=== PATIENT | female | born 1955 | race Caucasian/White ===

== ENCOUNTER 2019-09-27 07:12 | Emergency (ER) | payer OTHER, SELFPAY ==
--- NOTE | ~2019-09-27 | CT_ITS ---
EXAMINATION: CT abdomen pelvis w con DATE: 09/27/2019 08:59 INDICATION: Gastric abdominal pain, nausea and vomiting TECHNIQUE: Computed tomography (CT) of the abdomen and pelvis was performed with 100 mL Omnipaque-350 intravenous contrast. Automated exposure control and iterative reconstruction technique were employe d. The dose-length product was 1320.15 mGy-cm. COMPARISON: None FINDINGS: Mild dependent atelectasis in the bilateral lower lobes. There are some smooth septal line thickening at both lung bases consistent with mild pulmonary edema. Heart size is normal. Atherosclerotic coron reymundo artery calcification. There is edematous wall thickening of the gallbladder with slight hyperemia to the adjacent liver at along the gallbladder fossa suggesting acute cholecystitis. Subtle approxim ately 3 x 2 cm gallstone at the neck of the gallbladder. Likely secondary mild periportal edema in th e liver. Common bile duct is normal in caliber. Numerous splenic calcifications consistent with old g ranulomatous disease. Pancreas, bilateral adrenal glands and kidneys are normal. There is moderate co lonic diverticulosis with a sigmoid predominance. There is no adjacent inflammatory change to sugges t diverticulitis. Small bowel and appendix are normal. Bladder, uterus and bilateral adnexa are unrem arkable. No free intraperitoneal gas or fluid. No pathologically enlarged abdominal or pelvic lymphad enopathy. There is scattered calcified atherosclerosis of the aorta and many of the other arteries. L 5 spondylolysis with bilateral pars intra-articular is defects and 1 mm anterolisthesis on S1. 2 mm a nterolisthesis L4 on L5 with mild associated disc height loss and severe bilateral facet osteoarthrit is. IMPRESSION: 1. Acute cholecystitis with likely impacted 3 x 2 cm gallstone at the neck of the gallbladder. Reviewed, dictated and finalized at location A. IMPRESSION: 1. Acute cholecystitis with likely impacted 3 x 2 cm gallstone at the neck of t he gallbladder.
--- NOTE | 2019-09-27 07:17 | ED.ABDPAIN ---
HPI - Abdominal Pain General Chief Complaint: Abdominal Pain Stated Complaint: abd pain Time Seen by Provider: 09/27/19 07:18 Source: patient Mode of arrival: ambulatory Limitations: no limitations History of Present Illness HPI narrative: 63-year-old woman comes in today complaining of upper abdominal pain that started approximately 330 this morning. Patient states that she feels nauseated but has not no vomiting. She denies fever, diarrhea, black or bloody stools, cough or cold symptoms, recent sick exposures. She states she feels mildly short of breath. MD elicited complaint: abdominal pain Pertinent past history: none Onset (ago): hour(s) (4) Pain Consistency: constant Location: epigastric Severity: severe Quality: cramping Radiation: none Migration to: no migration Exacerbating factors: movement Relieving factors: nothing Associated symptoms: nausea Related Data Home Medications Medication Instructions Recorded Confirmed No Home Medications 09/27/19 09/28/19 Allergies Allergy/AdvReac Type Severity Reaction Status Date / Time No Known Allergies Allergy Verified 09/27/19 07:51 Review of Systems Constitutional: Constitutional: Denies chills and Denies fever(s) ENT: Denies dysphagia, Denies nasal congestion and Denies sore throat Cardiovascular: Cardiovascular: Denies chest pain and Denies radiating jaw, neck or arm pain Respiratory: Respiratory: Denies cough, Reports dyspnea and Denies wheezing Gastrointestinal: Gastrointestinal: Reports as per HPI Genitourinary: Genitourinary: Denies hematuria, Denies nocturia and Denies dysuria Musculoskeletal: Musculoskeletal: Denies arthralgias and Denies joint swelling Integumentary/Breasts: Skin/Breast: Denies pruritus, Denies erythema and Denies rash Neurologic: Denies vertigo, Denies dizziness and Denies syncope Psychiatric: Psychiatric: Denies anxiety and Denies depression Hematologic/Lymphatic: Hematologic/Lymphatic: Denies easy bleeding and Denies easy bruising Allergic/Immunologic: Allergic/Immunologic: Denies lip swelling and Denies wheezing PMFSH Past Medical History Medical History (Updated 09/28/19 @ 09:00 by Ernesto Chiang MD) Obesity Patient denies significant medical history Social History Social History Social History: The patient lives at home with her , Beto. She has a 40-year history of smoking 1/2 pack per day. Uses alcohol on occasion about once every 1-2 weeks. No illicit drug use. PCP: Dr. Reyes Smoking packs per day: 0.5 Smoking cigarettes per day: 10.0 Years smoked: 40 Smoking pack-years: 20.00 Smoking status: Current every day smoker Tobacco type: cigarettes Alcohol intake: current Drinks per week: 5 Alcohol use details: Drinks alcohol 1-2 times per week. Substance use: never Living arrangements: with family Occupation/Education: occupation Additional occupation/education comments: [employer] Gender identity (if verbalized by the patient): Female Sexual Orientation (if Verbalized by the Patient): Straight or Heterosexual Spiritual care concerns: No Exam Const: General: alert Nutritional Appearance: obese Orientation/consciousness: patient oriented x3 Limitations: no limitations Other: Moderate acute distress HENMT: Mouth: Yes moist mucous membranes Throat: posterior oropharynx normal Eyes: Conjunctivae: conjunctivae normal Pupils: Equal, round and reactive pupils present EOM: EOMs intact bilaterally Neck: Neck: normal visual inspection and no lymphadenopathy Resp: Effort & Inspection: normal respiratory effort and not labored Auscultation: clear to auscultation bilaterally, no rales, no rhonchi and no wheezes Cardio: Rate: regular rate Rhythm: regular rhythm Heart sounds: no murmurs GI: Inspection: non-distended GI Palp: Yes Soft to palpation, Yes Tenderness to palpation present (GI) (RUQ, RLQ. ),
[2019-09-27 07:25] VITALS: BP 175/101; PULSE 62; RESP 18; TEMP 36.4; O2SAT 96
--- NOTE | 2019-09-27 07:29 | ECG_ITS ---
Measurements Intervals [place] Rate: 54 P: 69 VT: 155 QRS: 66 QRSD: 88 T: 40 QT: 447 QTc: 424 Interpretive Statements SINUS BRADYCARDIA BORDERLINE ST ABNORMALITY- INFERIOR LEADS BASELINE ARTIFACT- II, III, AVF BORDERLINE ECG Electronically Signed On 09-27-2019 8:24:06 CDT by Andrew Henao D.O.
[2019-09-27 07:38] LABS: Add Urine Microscopic? YES; Appearance Urine Sl Cloudy (Clear); Bilirubin Urine Negative (Negative); Blood Urine Negative (Negative); Color Urine Yellow (Yellow); Glucose Urine UA Negative (Negative); Ketones Urine Trace (Negative); Leukocyte Esterase Ur Trace LEU/UL (Negative); Nitrate Urine Negative (Negative); Protein Urine Trace (Negative); Specific Grav Ur >= 1.030 (1.010-1.020)
[2019-09-27] MEDS: SODIUM CHLORIDE 0.9% IV 1,000 ML 999 ML IV CONT (07:41)
[2019-09-27] MEDS: PANTOPRAZOLE SODIUM IV 40 MG VIAL IV PUSH (07:41)
[2019-09-27] MEDS: ONDANSETRON INJ 4 MG/2 ML VIAL IV PUSH ×2 (07:41→08:14)
[2019-09-27 07:42] LABS: RBC Urine 0-2 /hpf (0-2); WBC Urine 0-3 /hpf (0-3)
[2019-09-27 07:43] LABS: Bacteria Urine 2+ /hpf; Squamous Epithelial Cell Urine Moderate /hpf (Few)
[2019-09-27] MEDS: HYDROmorphone HCL 2 MG/ML VIAL 0.5 MG IV PUSH (07:43)
[2019-09-27 07:46] LABS: Basophils Absolute Auto 0.06 K/mm3 (0.00-0.10); Basophils Percent Auto 0.4 % (0.0-1.0); Eosinophils Absolute Auto 0.24 K/mm3 (0.02-0.50); Eosinophils Percent Auto 1.7 % (1.0-6.0); Hematocrit 44.2 % (35.0-49.0); Hemoglobin 14.2 g/dL (12.0-15.0); Immature Granulocyte Absolute 0.04 K/mm3 (0.00-0.00); Immature Granulocyte Percent A 0.3 % (0.0-0.0); Lymphocytes Absolute Auto 1.67 K/mm3 (1.10-4.50); Lymphocytes Percent Auto 11.7 % (18.0-42.0); Mean Corpuscular HGB Conc 32.1 g/dL (32.0-36.0); Mean Corpuscular Hemoglobin 31.3 pg (27.0-31.0); Mean Corpuscular Volume 97.6 fL (78.0-102.0); Mean Platelet Volume 9.2 fl (9.2-11.8); Monocytes Absolute Auto 0.72 K/mm3 (0.10-0.90); Neutrophils Absolute Auto 11.6 K/mm3 (1.7-7.2); Neutrophils Percent Auto 80.9 % (50.0-70.0); Platelet Count Result 247 K/mm3 (150-420); Red Blood Count 4.53 M/mm3 (4.20-5.40); Red Cell Distribution Width 12.8 % (11.6-14.4); White Blood Count 14.3 K/mm3 (4.8-10.8)
[2019-09-27 07:57] VITALS: BP 128/72; PULSE 55; RESP 20; O2SAT 88
[2019-09-27 08:01] LABS: INR 0.9; Partial Thromboplastin Time 29.2 SEC (22.3-31.6); Prothrombin Time 9.8 Seconds (9.64-11.0)
[2019-09-27 08:05] LABS: Alanine Aminotransferase 28 U/L (14-59); Albumin Level 3.6 g/dL (3.4-5.0); Alkaline Phosphatase 87 U/L (46-116); Anion Gap 10.9 mmol/L (7-16); Aspartate Amino Transferase 26 U/L (15-37); Bilirubin,Total 0.2 mg/dL (0.00-1.00); Blood Urea Nitrogen 13 mg/dL (7-18); Calcium 8.4 mg/dL (8.5-10.1); Carbon Dioxide 29 mmol/L (21-32); Chloride 106 mmol/L (98-108); Estimated CRCL calculation 89 ml/min; Estimated Glomerular Filt Rate > 60; Glucose 123 mg/dL (70-99); Lactic Acid Reflex 1.4 mmol/L (0.4-2.0); Lipase 90 U/L (73-393); Osmolality Calculated 295 mOsm/kg (285-295); Potassium 3.9 mmol/L (3.5-5.1); Sodium 142 mmol/L (136-145); Total Protein 7.7 g/dL (6.4-8.2); Troponin I < 0.02 ng/mL (0.00-0.056)
--- NOTE | 2019-09-27 08:52 | PC.NURSE ---
pt to xray via wheelchair with xray staff.
--- NOTE | 2019-09-27 09:11 | ED.ABDPAIN ---
HPI - Abdominal Pain General Chief Complaint: Abdominal Pain Stated Complaint: abd pain Time Seen by Provider: 09/27/19 07:18 Source: patient Mode of arrival: ambulatory Limitations: no limitations History of Present Illness HPI narrative: 63YO female w/ sudden onset of severe cramping epigastric/RUQ abd pain approx 4 hours ago associated w/ Nausea presents to ED for eval. MD elicited complaint: abdominal pain Pertinent past history: none Onset (ago): hour(s) (4) Pain Consistency: constant Location: epigastric Severity: severe Quality: cramping Radiation: none Migration to: no migration Exacerbating factors: movement Relieving factors: nothing Associated symptoms: nausea Related Data Home Medications Medication Instructions Recorded Confirmed No Home Medications 09/27/19 09/27/19 Allergies Allergy/AdvReac Type Severity Reaction Status Date / Time No Known Allergies Allergy Verified 09/27/19 07:51 Review of Systems Cardiovascular: Cardiovascular: Reports as per HPI and Reports no additional cardiovascular complaints Respiratory: Respiratory: Reports as per HPI and Reports no additional respiratory complaints Gastrointestinal: Gastrointestinal: Reports abdominal pain, Denies bloating, Denies constipation, Denies heartburn, Denies diarrhea, Reports nausea and Denies vomiting Genitourinary: Genitourinary: Reports no additional female genitourinary complaints Musculoskeletal: Musculoskeletal: Reports no additional musculoskeletal complaints Integumentary/Breasts: Skin/Breast: Reports system reviewed and no additional complaints, except as docu Neurologic: Reports system reviewed and no additional complaints, except as documented Psychiatric: Psychiatric: Reports no additional psychiatric complaints [facility] Social History Social History Smoking status: Current every day smoker Alcohol intake: never Substance use: never Living arrangements: with family Exam Const: General: no acute distress and alert; No confusion Orientation/consciousness: patient oriented x3 Limitations: No altered mental status HENMT: Head: normal to inspection Eyes: Pupils: Equal, round and reactive pupils present Chest: Chest palpation & inspection: normal inspection of the chest Resp: Effort & Inspection: normal respiratory effort Cardio: Rate: regular rate Rhythm: regular rhythm GI: Inspection: distended GI Palp: Yes Tenderness to palpation present (GI) (Generalized abd TTP worse in Epigastric and RUQ) and Yes Rebound tenderness present Percussion: Yes normal to percussion : General: Yes no CVA tenderness Skin: General skin exam: normal color Neuro: General: patient oriented x3, moves all extremities, no focal motor deficits and CN's II-XI intact bilaterally Extrem: General: normal to inspection Course Course Emergency Course: Patient w/ Acute Cholecystitis w/ gallstone impacted at neck of GB. Start IV Abx and COnsult . Patient ok with going to [place]. D/W Dr Oscar Maojr () who accepts patient in transfer to [facility]. Agrees with current treatment and workup. Vital Signs Vital signs: Vital Signs Temperature 97.5 F L 09/27/19 07:25 Pulse Rate 62 09/27/19 07:25 Respiratory Rate 18 09/27/19 07:25 Blood Pressure 175/101 H 09/27/19 07:25 Pulse Oximetry 96 09/27/19 07:25 Temperature 97.5 F L 09/27/19 07:25 Pulse Rate 55 L 09/27/19 07:57 Respiratory Rate 20 09/27/19 07:57 Blood Pressure 128/72 09/27/19 07:57 Pulse Oximetry 88 L 09/27/19 07:57 Transfer Transfered to: [facility] (DR Tommy Major ()) MDM - Abdominal Pain Differential Diagnosis Differential diagnosis: Likely abdominal pain, acute appendicitis, gastroenteritis, small bowel obstruction and other (Cholecystitis, Cholelithiasis) Medical Records Attestation: I reviewed the patient's medical records. Lab Data Attestation: I reviewed the patien
--- NOTE | 2019-09-27 09:17 | PC.NURSE ---
call to [facility] for general surgeon consult.
[2019-09-27 09:26] VITALS: BP 168/92; PULSE 61; RESP 20; TEMP 37.1; O2SAT 97
--- NOTE | 2019-09-27 09:46 | PC.NURSE ---
no repsonse from Dr jackson at [facility], call to Jessie. awaiting call.
--- NOTE | 2019-09-27 09:58 | PC.NURSE ---
dr kearney speaking with dr jackson
[2019-09-27 10:07] VITALS: BP 165/87; PULSE 71; RESP 20; TEMP 37.1; O2SAT 99
--- NOTE | 2019-09-27 10:14 | PC.NURSE ---
[facility] called per pt request. awaiting arrival .
--- NOTE | 2019-09-27 10:38 | PC.NURSE ---
report to [facility], ems staff. pt alert and stable . continues with pain and queazy feeling. loaded and departed.
== END 2019-09-27 10:39 | disposition short-term general hospital (02) ==
PROVIDERS: Emergency Medicine; Emergency Provider Family Medicine; PCP Internal Medicine
DX: K81.9 Cholecystitis, unspecified (principal)
CPT/HCPCS: 36415; 74177; 80053; 81001; 83605; 83690; 84484; 85025; 85610; 85730; 93005; 96365; 96375; 96376; 99284; C9113; J1170; J2405; J2543; J7030; Q9965

== ENCOUNTER 2019-09-27 11:14 | Inpatient (IN) | payer OTHER, SELFPAY ==
--- NOTE | ~2019-09-27 | XR_ITS ---
XR chest 2V 09/27/2019 18:00 Indication: History of smoking. Preop examination. Procedure: 2 view chest Comparison: No prior studies for comparison. Findings: Heart size normal. There is bibasilar atelectasis/scarring. No focal pneumonia, edema, pleu ral effusion or pneumothorax. Impression: 1: Bibasilar atelectasis/scarring. Reviewed, dictated and finalized at location A. Impression: 1: Bibasilar atelectasis/scarring.
[2019-09-27 11:28] VITALS: BP 185/89; PULSE 64; RESP 17; TEMP 36.3; O2SAT 95; BMI 34.9
[2019-09-27 11:29] VITALS: BMI 34.9
[2019-09-27] MEDS: SODIUM CHLORIDE 0.9% IV 1,000 ML 100 ML IV CONT (12:42)
[2019-09-27] MEDS: ONDANSETRON INJ 4 MG/2 ML VIAL IV PUSH ×2 (12:44→21:41)
[2019-09-27] MEDS: MORPHINE SULFATE 4 MG/ML INJ IV PUSH (12:44)
[2019-09-27 14:00] VITALS: BP 155/79; PULSE 64; RESP 19; TEMP 36.6; O2SAT 93
--- NOTE | 2019-09-27 14:03 | PM.IMHP ---
H&P: HPI History of Present Illness Chief complaint: Acute Cholecystitis with cholelithiasis Narrative: Arely Andre is a 63 year old female with no known significant past medical history, who is being admitted to [facility] to our service as a direct admission from the emergency department at [facility]. The patient reports waking up with a sudden onset of upper abdominal pain around 3:00 am early this morning. She has never experienced this pain in the past and describes it as a severe sharp pain that radiates to her mid back. She had eaten chilli cheese dogs for dinner and went to bed feeling otherwise normal. After the pain woke her up, she states that it was unrelenting and there were no alleviating factors. She felt nauseated and made herself vomit once, but this did not help her pain. She also had a bowel movement this morning that did not change her pain either. Due to the severe abdominal pain, she decided to present to the [place] emergency department for further evaluation. Labs at [place] revealed a white blood cell count of 14,300, normal liver function tests, normal lipase, and lactic acid was 1.4. CT scan of the abdomen and pelvis showed evidence of acute cholecystitis with a 3 x 2 cm gallstone at the neck of the gallbladder. The ED physician contacted our service about transferring the patient and she is now being directed admitted in this setting for acute calculous cholecystitis. The patient is now being seen on the medical floor. Her blood pressure is elevated with the last reading of 185/89 and she denies any history of high blood pressure in the past. She states her blood pressure is actually typically low. She does report that her abdominal pain is a 10/10 after recently receiving the IV Morphine, which she felt did not help with her pain. She still feels nauseous, but denies any further vomiting. Denies fever or chills at home. Reports her bowels have been moving normally for her with two bowel movements so far today that were normal in color and consistency. No other complaints at this time. No known family history of gallbladder disease. Review of Systems Constitutional: Constitutional: Reports as per HPI, Denies chills, Denies excessive sweating, Denies fatigue, Denies fever(s), Denies headache(s) and Denies weakness Eyes: Eyes: Denies change in vision and Denies loss of vision ENT: Reports Normal hearing present, Denies dizziness and Denies headache(s) Cardiovascular: Cardiovascular: Denies chest pain, Denies syncope, Denies leg edema, Denies lightheadedness, Denies radiating jaw, neck or arm pain and Denies dyspnea Respiratory: Respiratory: Reports no additional respiratory complaints, Denies cough, Denies dyspnea and Denies wheezing Gastrointestinal: Gastrointestinal: Reports as per HPI, Reports abdominal pain (upper abdominal pain r/t mid back), Denies melena, Denies bloating, Denies hematochezia, Denies change in bowel habits, Denies change in stool character, Denies constipation, Denies dysphagia, Denies diarrhea, Reports nausea, Reports vomiting (forced emesis x 1) and Denies hematemesis Genitourinary: Genitourinary: Reports no additional female genitourinary complaints, Denies hematuria and Denies dysuria Musculoskeletal: Musculoskeletal: Denies deformity, Denies joint swelling, Denies radiating pain into limb and Denies tingling Integumentary/Breasts: Skin/Breast: Denies pruritus, Denies wounds and Denies jaundice Neurologic: Reports Normal hearing present, Denies confusion, Denies dizziness, Denies syncope, Denies headache(s), Denies loss of vision, Denies tingling, Denies tremor(s) and Denies weakness Psychiatric: Psychiatric: Denies anxiety, Denies confusion and Denies depression Endocrine: Endocrine: Denies cold intolerance, Denies excessive sweating, Denies fatigue and Denies heat intolerance Hematologic/Lymphatic: Hematologic/Lymphatic: Denies easy bleeding and Denies easy bruising PMFSH Family Histor
[2019-09-27 20:00] VITALS: BP 156/64; PULSE 73; RESP 20; TEMP 37.2; O2SAT 95
[2019-09-27 21:30] VITALS: O2SAT 95
[2019-09-28] VITALS (15 sets, daily range): BP systolic 102–164; BP diastolic 50–86; PULSE 62–86; RESP 10–20; TEMP 36.3–38.6; O2SAT 90–100
[2019-09-28] MEDS: SODIUM CHLORIDE 0.9% IV 1,000 ML 100 ML IV CONT (00:11)
[2019-09-28 06:08] LABS: Basophils Percent Auto 0.1 % (0.2-1.2); Hematocrit 41.2 % (37.0-47.0); Hemoglobin 13.1 g/dL (12.0-15.0); Immature Granulocyte Absolute 0.13 K/mm3 (0.00-0.031); Immature Granulocyte Percent A 0.6 % (0-0.5); Lymphocytes Absolute Auto 1.01 K/mm3 (0.9-3.2); Lymphocytes Percent Auto 4.9 % (18.3-44.2); Mean Corpuscular HGB Conc 31.8 g/dl (32-36); Mean Corpuscular Volume 97.6 fl (80-100); Mean Platelet Volume 9.6 fl (7.4-10.4); Monocytes Absolute Auto 1.3 K/mm3 (0.1-0.6); Monocytes Percent Auto 6.1 % (2.6-8.5); Neutrophils Absolute Auto 18.1 K/mm3 (1.3-6.7); Neutrophils Percent Auto 88.3 % (45.5-73.1); Platelet Count Result 220 k/mm3 (150-375); Red Blood Count 4.22 M/mm3 (4.2-5.4); White Blood Count 20.5 K/mm3 (4.5-10.0)
[2019-09-28 06:20] LABS: Alanine Aminotransferase 140 U/L (4-35); Albumin Level 3.8 g/dL (3.5-5.1); Alkaline Phosphatase 94 U/L (38-126); Aspartate Amino Transferase 122 U/L (14-36); Bilirubin,Total 0.8 mg/dL (0.2-1.3); Blood Urea Nitrogen 9 mg/dL (7-17); Calcium 8.1 mg/dL (8.4-10.2); Carbon Dioxide 29 mmol/L (22-30); Chloride 104 mmol/L (98-107); Estimated CRCL calculation 116 ml/min; Estimated Glomerular Filt Rate > 60; Glucose 138 mg/dL (65-105); Lipase 27 U/L (23-300); Magnesium 1.8 mg/dL (1.6-2.3); Potassium 4.1 mmol/L (3.4-5.0); Sodium 136 mmol/L (137-145)
--- NOTE | 2019-09-28 08:00 | PC.NURSE ---
To OR per bed, IV saline locked.
[2019-09-28] MEDS: LACTATED RINGERS 1,000 ML 30 ML IV CONT ×2 (08:30→12:10)
--- NOTE | 2019-09-28 08:59 | WPDANESEPPF ---
Anes - Initial Pre Proc Eval Procedure: Operation Date: 09/28/19 09:30 Proposed Procedures p Laparoscopic Cholecystectomy ,Possible Intraoperative Cholangiograms,Possible Open - Silas Major MD Date/Time: 09/28/19 08:59 Surgeon: Silas Major MD Pre Op Diagnosis: Acute Cholecystitis with cholelithiasis Patient Data Age: 63 Gender: F Height: 5 ft 7 in Weight: 101 kg Last Vital Signs Temp 37.0 C 09/28/19 04:00 Pulse 86 09/28/19 04:00 Resp 20 09/28/19 04:00 BP 163/80 H 09/28/19 04:00 Pulse Ox 93 09/28/19 04:00 Allergies Allergy/AdvReac Type Severity Reaction Status Date / Time No Known Allergies Allergy Verified 09/27/19 07:51 Home Medications Medication Instructions Recorded Confirmed Type No Home Medications 09/27/19 09/28/19 History Laboratory Tests 09/28/19 09/28/19 09/28/19 05:46 05:46 05:46 WBC 20.5 K/mm3 H K/mm3 (4.5-10.0) RBC 4.22 M/mm3 M/mm3 (4.2-5.4) Hgb 13.1 g/dL g/dL (12.0-15.0) Hct 41.2 % % (37.0-47.0) MCV 97.6 fl fl (80-100) MCH 31.0 pg pg (26-34) MCHC 31.8 g/dl L g/dl (32-36) RDW 13.0 % % (11.5-14.5) Plt Count 220 k/mm3 k/mm3 (150-375) MPV 9.6 fl fl (7.4-10.4) Immature Gran % (Auto) 0.6 % H % (0-0.5) Neut % (Auto) 88.3 % H % (45.5-73.1) Lymph % (Auto) 4.9 % L % (18.3-44.2) Divide % (Auto) 6.1 % % (2.6-8.5) Eos % (Auto) 0.0 % % (0-4.4) Baso % (Auto) 0.1 % L % (0.2-1.2) Lymph # (Auto) 1.01 K/mm3 K/mm3 (0.9-3.2) Divide # (Auto) 1.3 K/mm3 H K/mm3 (0.1-0.6) Eos # (Auto) 0.0 K/mm3 K/mm3 (0-0.3) Baso # (Auto) 0.0 K/mm3 K/mm3 (0.0-0.1) Abs Immat Gran (auto) 0.13 K/mm3 H K/mm3 (0.00-0.031) Absolute Neuts (auto) 18.1 K/mm3 H K/mm3 (1.3-6.7) Absolute Nucleated RBC 0.0 K/mm3 K/mm3 (0.0-0.012) Nucleated RBC % 0.0 % % (0.0-0.2) Sodium 136 mmol/L L mmol/L (137-145) Potassium 4.1 mmol/L mmol/L (3.4-5.0) Chloride 104 mmol/L mmol/L (98-107) Carbon Dioxide 29 mmol/L mmol/L (22-30) BUN 9 mg/dL mg/dL (7-17) Creatinine 0.50 mg/dL L mg/dL (0.7-1.0) Estim Creat Clear Calc 116 ml/min ml/min Estimated GFR > 60 (59 - ) Glucose 138 mg/dL H mg/dL (65-105) Calcium 8.1 mg/dL L mg/dL (8.4-10.2) Magnesium 1.8 mg/dL mg/dL (1.6-2.3) Total Bilirubin 0.8 mg/dL mg/dL (0.2-1.3) AST 122 U/L H U/L (14-36) ALT 140 U/L H U/L (4-35) Alkaline Phosphatase 94 U/L U/L (38-126) Total Protein 7.0 g/dL g/dL (6.3-8.2) Albumin 3.8 g/dL g/dL (3.5-5.1) Lipase 27 U/L U/L (23-300) Blood Type A Positive Antibody Screen Negative Patient hx anesthesia problems: none Family hx anesthesia problems: none [facility] Past Medical History Medical History (Updated 09/28/19 @ 09:00 by Ernesto Chiang MD) Obesity Patient denies significant medical history Surgical History Surgical History History of colonoscopy Within the past 10 years that was reportedly normal. No pertinent past surgical history Family History Family History Mother Congestive heart failure Father Lung cancer Grandparent Diabetes mellitus Acute myocardial infarction Social History Social History Social History: The patient lives at home with her , Beto. She has a 40-year history of smoking 1/2 pack per day. Uses alcohol on occasion about once every 1-2 weeks. No illicit drug use. PCP: Dr. Reyes Smoking packs per day: 0.5 Smoking cigarettes per day:
--- NOTE | 2019-09-28 09:40 | SUR.PREOP ---
0930 OK TO GIVE IV TYLENOL PER ANESTH.
[2019-09-28] MEDS: BUPIVACAINE/EPINEPHRINE 0.5% 30 ML VIAL INFILTRATE (09:41)
--- NOTE | 2019-09-28 11:50 | SUR.OPER ---
EBL:20cc
--- NOTE | 2019-09-28 12:08 | P.OP_ITS ---
Procedure Note - Detailed Date of procedure: 09/28/19 Pre-op diagnosis: Acute Cholecystitis with cholelithiasis Acute Cholecystitis with Cholelithiasis Post-op diagnosis: same Procedure performed: Laparoscopic Cholecystectomy Description of procedure: Patient was seen preoperatively in the holding area and risks, benefits and alternatives confirmed. Patient was taken to the operating room and general anesthesia was induced. A time out was then preformed with the surgery team confirming patient and site of surgery. The abdomen was prepped and draped in the usual sterile fashion. Incision was made just below the umbilicus with an 11 blade knife. I placed 2 stay sutures of O- Vicryl on either side of the mid- line fascia beneath the umbilicus and was then able to slide in the Grande cannula through the fascial defect into the peritoneum. First under low flow and then under high flow the abdomen was insufflated with carbon dioxide never exceeding a pressure of 14. Three 5 mm trocars were then introduced under direct vision. The following trocars were introduced under direct vision: a 5 mm in the epigastrium and two 5 mm trocars along the right costal margin laterally in the subcostal area. Gallbladder was significantly distended. Therefore I decompressed it with a long needle 20 cc of dark brown bile were aspirated and sent for Gram stain and C&S. Another 50- 100 cc were aspirated using a suction and then we began to the dissecting the gallbladder. There was significant omental adhesions to the underside of the gallbladder. These were taken down with blunt and sharp dissection using some Bovie cautery for hemostasis. We were able to dissect this completely away from the neck of the gallbladder. I then carefully used the L-shaped cautery and the [place] dissector to dissect out the triangle of Calot. I then was able to dissect out both the cystic duct and cystic artery and identify a window of safety. The gall bladder was grasped and the cystic duct and artery were d issected free and clipped with an 5 mm endo-clip blocker and polisher gold wheel. The cystic duct and artery were clipped with use of 2 clips on the patient's side 1 on the gallbladder side utilizing a 5 mm endoclip-blocker and polisher gold wheel. The cystic duct was then transected. The cystic artery was also transected at this point. The gall bladder was removed using electrocautery and then removed from the abdomen using an endobag. In order to get the large stone out of the abdomen within the gallbladder I did make the fascial defect slightly larger with Gutierres scissors. The trocars were removed visualizing hemostasis and the remaining gas evacuated. The large trocar site at the umbilicus was closed with use of two figure of 8 and one simple suture of O-Vicryl. Further local anesthetic was placed into each incision for postop pain control. The skin incisions were closed with subcuticular suture of 4-0 Monocryl. Surgical glue then was applied to all the incisions. Patient tolerated the procedure well was taken to the recovery room in good condition. Anesthesia: GETA Surgeon: Silas Major MD Film Mounter: Gage GAINES, OR licensed occupational therapy assistant Estimated blood loss (mL): 50 Drains: No Packing: No Pathology: yes (Gallbladder) Complications: No immediate complications Condition: stable Disposition: PACU Findings: The gallbladder was significantly inflamed and enlarged. There were palpable stones within it upon removal. There were significant inflammatory adhesions on the lower corner of the gallbladder surrounding the large stone at its neck.
--- NOTE | 2019-09-28 13:11 | SUR.PHASEI ---
1310 sbar faxed floor notified
--- NOTE | 2019-09-28 13:55 | PC.NURSE ---
Returned from OR per bed. IV intact
[2019-09-28] MEDS: LACTATED RINGERS 1,000 ML 100 ML IV CONT (14:03)
--- NOTE | 2019-10-05 16:01 | PM.DS ---
DS: Admitting Diagnosis Admitting Diagnosis Admitting Diagnosis: Calculus of gallbladder with acute cholecystitis without obstruction Tobacco abuse DS: Discharge Diagnosis Discharge Diagnosis (1) Cholecystitis, acute with cholelithiasis: Code(s): K80.00 - Calculus of gallbladder with acute cholecystitis without obstruction Status: Acute Assessment and Plan: Taken for a Laparoscopic Cholecystectomy on 09/28/[address] Major (2) Tobacco abuse: Code(s): Z72.0 - Tobacco use Status: Acute Assessment and Plan: Encouraged cessation. Discussed f/u with PCP. DS: Summary Hospital Course Reason for hospitalization: Arely Andre is a 63 year old female with no known significant past medical history, who presented to [facility] emergency department for evaluation of a sudden onset of upper abdominal pain. This pain started early the same morning, around 3:00 am, and was a new pain for her. She had associated nausea, with one episode of vomiting. Workup in the ED showed evidence of acute cholecystitis on the CT scan with a white blood cell count of 14,300. There was a 3 x 2 cm gallstone at the neck of the gallbladder noted on CT. Our service was contacted and the decision was made to directly admit the patient to [facility] for surgical evaluation. Hospital Course: (Backdated discharge summary for 09/28/19) The patient was admitted to the hospital, started on IV antibiotics, IV fluids, antiemetics, and analgesics. After discussing treatment options with the patient, she was taken for a laparoscopic cholecystectomy by Dr. Major the following morning, on 09/28/19. Intra-operative findings consisted of acute cholecystitis with cholelithiasis, and there were no significant issues that occurred during surgery. (See full operative report for details). The patient tolerated this well. She was recovered in the PACU post-operatively and transferred back to the medical floor. She was slowly advanced to a low fat diet. IV antibiotics were continued and she was discharged home on oral Levaquin x 3 days. The patient was seen later in the afternoon by myself and was doing well. She denies any abdominal pain, nausea, or vomiting. She is tolerating her diet. Pain is controlled. Voiding without difficulty. No other complaints at this time. Discussed discharge care instructions with the patient and her , and all questions were answered. She was stable for discharge in the afternoon and discharge instructions were put in for the evening. She will be sent home with Mati, instructions were discussed. I instructed her to also follow-up with her PCP in 1-2 weeks after discharge. Time spent discussing smoking cessation with patient: 3 to 10 minutes Status at Discharge Functional status at discharge: independent ambulation Overall status at discharge: patient is progressing back to baseline Time Spent with Patient Time attestation: Total time spent providing and/or coordinating discharge services: Time spent: Greater than 30 minutes Exam Const: General: comfortable, no acute distress, alert and awake Orientation/consciousness: patient oriented x3 Resp: Effort & Inspection: normal respiratory effort and able to speak in complete sentences Auscultation: clear to auscultation bilaterally Cardio: Rate: regular rate Rhythm: regular rhythm GI: Inspection: non-distended and incision (Abdominal incisions clean/dry/intact.) GI Palp: Yes Soft to palpation, Yes Tenderness to palpation present (GI) (appropriate incisional) and No Rebound tenderness present Auscultation: Hypoactive bowel sounds present Neuro: General: patient oriented x3 and moves all extremities Cranial nerves: Yes CN's II-XII intact bilaterally Speech: normal speech Extrem: General: no calf tenderness and no edema Psych: Mental Status: mental status grossly normal Attitude: cooperative Thought process: Normal thought process present Thought dania
== END 2019-09-28 18:27 | disposition home or self-care (01) | DRG 419 ==
PROVIDERS: Admitting Provider Surgery; PCP Internal Medicine; Visit Provider Surgery
PROC: 0FT44ZZ Resection of Gallbladder, Percutaneous Endoscopic Approach (ICD-10-PCS; CPT 47562; principal; 2019-09-28 09:30)
DX: K80.00 Calculus of gallbladder with acute cholecystitis without obstruction (principal); F17.210 Nicotine dependence, cigarettes, uncomplicated; R03.0 Elevated blood-pressure reading, without diagnosis of hypertension
CPT/HCPCS: 36415; 71046; 80053; 83690; 83735; 85025; 86850; 86900; 86901; 87070; 87075; 87205; 88304; J0131; J1100; J1170; J2250; J2270; J2405; J2543; J2704; J3010; J7030; J7120

== ENCOUNTER 2021-08-26 14:51 | Outpatient (CLI) | payer OTHER, SELFPAY ==
--- NOTE | ~2021-08-26 | XR_ITS ---
XR chest 2V 08/26/2021 15:25 Indication: Cough and congestion for 3 days Procedure: 2 view chest Comparison: 09/27/2019 Findings: Borderline heart size. There is pulmonary vascular congestion with peribronchial thickening . No significant effusion. The lungs are hyperinflated which is consistent with, but not diagnostic o f chronic obstructive pulmonary disease. No acute osseous abnormality. There are cholecystectomy clip s. Impression: 1: Borderline heart size with pulmonary vascular congestion. Reviewed, dictated and finalized at location B. Impression: 1: Borderline heart size with pulmonary vascular congestion.
[2021-08-26 15:12] LABS: Basophils Absolute Auto 0.08 K/mm3 (0.00-0.10); Basophils Percent Auto 0.7 % (0.0-1.0); Eosinophils Absolute Auto 0.32 K/mm3 (0.02-0.50); Eosinophils Percent Auto 2.7 % (1.0-6.0); Hematocrit 37.6 % (35.0-42.0); Hemoglobin 11.8 g/dL (11.7-13.8); Immature Granulocyte Absolute 0.06 K/mm3 (0.00-0.00); Immature Granulocyte Percent A 0.5 % (0.0-0.0); Lymphocytes Absolute Auto 2.44 K/mm3 (1.10-4.50); Lymphocytes Percent Auto 20.9 % (18.0-42.0); Mean Corpuscular HGB Conc 31.4 g/dL (32.0-36.0); Mean Corpuscular Hemoglobin 31.6 pg (27.0-31.0); Mean Corpuscular Volume 100.8 fL (78.0-102.0); Mean Platelet Volume 9.2 fl (9.2-11.8); Monocytes Percent Auto 7.7 % (2.0-11.0); Neutrophils Absolute Auto 7.9 K/mm3 (1.7-7.2); Neutrophils Percent Auto 67.5 % (50.0-70.0); Platelet Count Result 256 K/mm3 (150-420); Red Blood Count 3.73 M/mm3 (4.20-5.40); White Blood Count 11.7 K/mm3 (4.8-10.8)
[2021-08-26 15:24] LABS: Alanine Aminotransferase 60 U/L (14-59); Albumin Level 3.4 g/dL (3.4-5.0); Alkaline Phosphatase 89 U/L (46-116); Anion Gap 4 mmol/L (8-16); Aspartate Amino Transferase 42 U/L (15-37); Bilirubin,Total 0.3 mg/dL (0.00-1.00); Blood Urea Nitrogen 11 mg/dL (7-18); Calcium 8.3 mg/dL (8.5-10.1); Carbon Dioxide 33 mmol/L (21-32); Chloride 106 mmol/L (98-108); Estimated Glomerular Filt Rate > 60; Glucose 95 mg/dL (70-99); Osmolality Calculated 295 mOsm/kg (285-295); Potassium 3.5 mmol/L (3.5-5.1); Sodium 143 mmol/L (136-145); Total Protein 8.1 g/dL (6.4-8.2)
[2021-08-26 16:14] LABS: NT Pro B Type Natriuretic Pept 260 pg/mL (0-125)
== END 2021-08-26 14:52 | disposition home or self-care (01) ==
LOC: CHSLAB 14:57
PROVIDERS: PCP Internal Medicine; Visit Provider Internal Medicine
DX: R05.9 Cough, unspecified (principal); R50.9 Fever, unspecified; R06.02 Shortness of breath
CPT/HCPCS: 36415; 71046; 80053; 83880; 85025

== ENCOUNTER 2021-09-09 08:00 | Outpatient (CLI) | payer OTHER, SELFPAY ==
--- NOTE | ~2021-09-09 | XR_ITS ---
EXAMINATION: XR elbow RT min 3V, XR forearm RT 2V DATE: 09/09/2021 15:55 INDICATION: Posterior right elbow and arm pain post fall 4 days prior TECHNIQUE: 1. Anteroposterior, two oblique and lateral views of the right elbow were obtained. 2. Anteroposterior and lateral views of the right forearm were obtained. COMPARISON: None. FINDINGS: Mildly impacted fracture at the neck of the proximal right radius. On one of the oblique images of th e elbow there is suggestion of subtle lucent fracture line extending to involve the articular cortex. No evident significant fracture gap or incongruity at the articular cortex. Alignment remains near-a natomic. Joint spaces are normal. There is a right elbow joint effusion with displacement of the ante rior fat pad. Mild soft tissue swelling and subcutaneous edema posterior to the proximal forearm. IMPRESSION: 1. Mildly impacted fracture at the neck of the proximal right radius with right elbow, potentially wi th intra-articular extension to the radial head. 2. Right elbow joint effusion. Reviewed, dictated and finalized at location B. IMPRESSION: 1. Mildly impacted fracture at the neck of the proximal right radius with right elbow, potentially with intra-articular extension to the radial head. 2. Right elbow joint effusion.
--- NOTE | ~2021-09-09 | US_ITS ---
EXAMINATION: US right upper quadrant DATE: 09/09/2021 08:36 INDICATION: Elevated liver enzymes TECHNIQUE: Multiple grayscale and Doppler ultrasound images of the abdomen were obtained. COMPARISON: CT, 09/27/2019 FINDINGS: The head and body of the pancreas are normal. The pancreatic tail is obscured by bowel gas. The liver demonstrates increased echogenicity, heterogenous echotexture, and decreased through trans mission. No surface nodularity. Normal hepatopetal flow in the main portal vein. There has been inter flo cholecystectomy. The normal common bile duct measures 6 mm. IMPRESSION: 1. No sonographic correlate for the patient's symptoms. Reviewed, dictated and finalized at location A.
== END 2021-09-09 08:01 | disposition home or self-care (01) ==
PROVIDERS: PCP Internal Medicine; Visit Provider Internal Medicine
DX: S52.131A Displaced fracture of neck of right radius, initial encounter for closed fracture (principal); M25.521 Pain in right elbow; M79.601 Pain in right arm; R94.5 Abnormal results of liver function studies; I50.9 Heart failure, unspecified; R06.02 Shortness of breath
CPT/HCPCS: 73080; 73090; 76705

== ENCOUNTER 2021-09-19 10:07 | Outpatient (CLI) | payer OTHER, SELFPAY | END 2021-09-19 10:08 | disposition home or self-care (01) | LOC: CHSCARD 10:10 | PROVIDERS: PCP Internal Medicine; Visit Provider Internal Medicine | DX: R94.5 Abnormal results of liver function studies (principal); I50.9 Heart failure, unspecified; R06.02 Shortness of breath | CPT/HCPCS: 94060; 94726; 94729 ==

== ENCOUNTER 2021-10-10 12:09 | Outpatient (CLI) | payer MEDICARE, SELFPAY ==
--- NOTE | 2021-10-10 13:30 | ECHO_ITS ---
Patient Info Name: Arely Andre Age: 65 years : 1955 Gender: Female Ht: 66 in Wt: 230 lbs BSA: 2.25 m2 HR: 77 bpm BP: 146 / 89 mmHg Technical Quality: Good Exam Date: 10/10/2021 12:24 PM Exam Location: [facility] Patient Status: Outpatient Admit Date: 10/10/2021 Staff Ordering Physician: Antoine Reyes MD [employer] Singer: Waylon Jiménez, JOHNY, RT Attending Provider: Antoine Reyes MD Exam Type: CA echo doppler color flow Study Info Complete two-dimensional, color flow and Doppler transthoracic echocardiogram is performed. Strain analysis performed. Summary 1. Complete two-dimensional, color flow and Doppler transthoracic echocardiogram is performed. 2. Left ventricular chamber dimension is mildly enlarged. 3. Left ventricular systolic function is normal, estimated at 60-65%. 4. There is mild concentric increased left ventricular wall thickness. 5. The left ventricular diastolic function is grade I diastolic dysfunction. 6. E/e' 9 is minimally elevated. 7. Global longitudinal strain is normal at -20.5%. 8. Left atrial chamber dimension is mildly enlarged. 9. The mitral valve has mildly calcified leaflets. 10. There is mild tricuspid valve regurgitation. 11. No pulmonary hypertension, estimated pulmonary arterial systolic pressure is 29 mmHg. Left Ventricle E/e' 9 is minimally elevated. Global longitudinal strain is normal at -20.5%. Left ventricular chamber dimension is mildly enlarged. Left ventricular systolic function is normal, estimated at 60-65%. There is mild concentric increased left ventricular wall thickness. The left ventricular diastolic function is grade I diastolic dysfunction. Right Ventricle Right ventricular systolic function is normal and with normal TAPSE 2.5 cm. Right ventricular chamber dimension is normal. Left Atria Left atrial chamber dimension is mildly enlarged. Right Atria Right atrial chamber dimension is normal. Aortic Valve The aortic valve is trileaflet. There is no aortic valve stenosis. There is no aortic valve regurgitation. Pulmonic Valve There is no pulmonic regurgitation. Mitral Valve The mitral valve has mildly calcified leaflets. There is no mitral valve stenosis. There is no mitral valve regurgitation. Tricuspid Valve There is mild tricuspid valve regurgitation. No pulmonary hypertension, estimated pulmonary arterial systolic pressure is 29 mmHg. Pericardium/Pleural There is no pericardial effusion. Inferior Vena Cava Normal inferior vena cava with >50% collapse upon inspiration consistent with normal right atrial pressure, 5 mmHg. Aorta The aortic root size at the sinus of Valsalva is normal. Left Ventricular Outflow Tract Name Value Normal LVOT 2D LVOT Diameter 2.1 cm LVOT Doppler LVOT Peak Velocity 109 cm/s LVOT Peak Gradient 5 mmHg LVOT Mean Gradient 2 mmHg LVOT VTI 22 cm LVOT VTI/AV VTI Ratio 0.6 LVOT Stroke Volume 77 ml Mitral Valve -------
== END 2021-10-10 12:10 | disposition home or self-care (01) ==
LOC: CHSIMG 12:11
PROVIDERS: PCP Internal Medicine; Visit Provider Internal Medicine
DX: R94.5 Abnormal results of liver function studies (principal); I50.9 Heart failure, unspecified; R06.02 Shortness of breath
CPT/HCPCS: 93306

== ENCOUNTER 2021-10-14 08:36 | Outpatient (CLI) | payer MEDICARE, SELFPAY ==
--- NOTE | ~2021-10-14 | XR_ITS ---
EXAMINATION: XR elbow RT min 3V INDICATION: Head/neck fracture of the right radius, follow-up TECHNIQUE: Four views of the right elbow were obtained. COMPARISON: 09/09/2021 FINDINGS: There is sclerosis in the anterior neck/head of the right radius which extends to the artic ular surface at the site of the previously described fracture. Alignment is normal. No additional hea ling fracture is identified. The soft tissues are unremarkable. The previously described elbow joint effusion has resolved. IMPRESSION: 1. Head/neck fracture of the right radius with routine healing. Reviewed, dictated and finalized at location B.
== END 2021-10-14 08:37 | disposition home or self-care (01) ==
LOC: CHSIMG 08:39
PROVIDERS: PCP Internal Medicine; Visit Provider Internal Medicine
DX: S52.131D Displaced fracture of neck of right radius, subsequent encounter for closed fracture with routine healing (principal); S52.121D Displaced fracture of head of right radius, subsequent encounter for closed fracture with routine healing
CPT/HCPCS: 73080

== ENCOUNTER 2021-11-25 08:02 | Outpatient (CLI) | payer MEDICARE, SELFPAY ==
--- NOTE | ~2021-11-25 | XR_ITS ---
CORRECTED REPORT TITLE CHANGE 11/25/21 [facility] [place]: XR elbow RT min 3V DATE: 11/25/2021 08:27 INDICATION: Follow-up right radial head fracture. TECHNIQUE: Anteroposterior, two oblique and lateral views of the right elbow were obtained. COMPARISON: None. FINDINGS: Interval healing of the previously fracture at the head neck junction of the proximal right radius with remodeling of the previously sharply angulated cortex now with smoothly curving overlying periosteal reaction. Alignment remains essentially anatomic. No new fractures identified. No right elbow joint effusion. There is mild nonuniform joint space narrowing at the ulnotrochlear articulation consistent with mild osteoarthritis. Soft tissues are unremarkable. IMPRESSION: 1. Healing nondisplaced fracture at the proximal right radial head neck junction which remains in essentially anatomic alignment. Reviewed, dictated and finalized at location A. MTDD IMPRESSION: 1. Healing nondisplaced fracture at the proximal right radial head neck junctio n which remains in essentially anatomic alignment.
== END 2021-11-25 08:03 | disposition home or self-care (01) ==
LOC: CHSIMG 08:04
PROVIDERS: PCP Internal Medicine; Visit Provider Internal Medicine
DX: S52.121D Displaced fracture of head of right radius, subsequent encounter for closed fracture with routine healing (principal)
CPT/HCPCS: 73070; 73080